=== PATIENT | female | born 1995 | race Caucasian/White ===

== ENCOUNTER 2018-10-05 05:15 | Inpatient (IN) | payer MEDICAID ==
[2018-10-05] MEDS ORDERED: BUTORPHANOL 2 MG INJ IV ×2 (06:00)
[2018-10-05] MEDS ORDERED: OXYTOCIN 30 UNITS/LR 500 ML IV ×2 (06:00→10:00)
[2018-10-05] MEDS ORDERED: LIDOCAINE 1% (MPF) 30 ML INJ INJ (06:00)
[2018-10-05] MEDS ORDERED: METHYLERGONOVINE 0.2 MG INJ IM ×2 (06:00→10:00)
[2018-10-05] MEDS ORDERED: CARBOPROST 250 MCG INJ IM ×2 (06:00→10:00)
[2018-10-05] MEDS: LACTATED RINGER'S 1,000 ML IV ×4 (06:29→13:57)
[2018-10-05 06:51] LABS: ADD MAN DIFF? NO
[2018-10-05 06:56] LABS: WHITE BLOOD COUNT 8.5 10^3/ul (4.8-10.8)
[2018-10-05 06:56] LABS: BASOPHIL # 0.1 10^3/ul (0.0-0.1); BASOPHILS % 0.6 % (0.0-2.0); EOSINOPHILS # 0.1 10^3/ul (0.0-0.5); EOSINOPHILS % 0.9 % (0.0-7.0); HEMATOCRIT 33.7 % (37.0-47.0); LYMPHOCYTES # 2.3 10^3/ul (0.8-2.9); LYMPHOCYTES % 26.6 % (15.0-51.0); MEAN CORPUSCULAR HEMOGLOBIN 26.8 pg (29.0-33.0); MEAN CORPUSCULAR HGB CONC 32.6 g/dl (32.0-37.0); MEAN CORPUSCULAR VOLUME 82.2 fl (82.0-101.0); MEAN PLATELET VOLUME 11.1 fl (7.4-10.4); MONOCYTE # 0.6 10^3/ul (0.3-0.9); MONOCYTES % 7.2 % (0.0-11.0); NEUTROPHIL # 5.4 10^3/ul (1.6-7.5); NEUTROPHILS % 63.3 % (39.0-77.0); PLATELET COUNT 165 10^3/UL (140-415); RED CELL DISTRIBUTION WIDTH 13.5 % (11.5-14.5)
[2018-10-05 07:15] LABS: INR 0.88; PT RATIO 0.9
[2018-10-05 07:16] LABS: PARTIAL THROMBOPLASTIN TIME 26.3 Sec (23.0-35.0)
[2018-10-05 07:54] LABS: HEPATITIS B SURFACE ANTIGEN NEGATIVE (NEGATIVE)
[2018-10-05] MEDS: MISOPROSTOL 200 MCG TAB PR (07:57)
[2018-10-05] MEDS: OXYTOCIN 30 UNITS/LR 500 ML IV ×3 (07:58→11:36)
[2018-10-05] MEDS: IBUPROFEN 600 MG TAB PO ×3 (08:09→19:29)
[2018-10-05] MEDS: LACTATED RINGER'S 1,000 ML IV* ×2 (09:35→17:35)
[2018-10-05] MEDS ORDERED: MAGNESIUM HYDROXIDE 30ML CUP PO (10:00)
[2018-10-05] MEDS ORDERED: ONDANSETRON 4 MG INJ IV (10:00)
[2018-10-05] MEDS ORDERED: LANOLIN HPA 1 PKT TOP (10:00)
[2018-10-05] MEDS ORDERED: MISOPROSTOL 200 MCG TAB PR (10:00)
[2018-10-05] MEDS: SENNA/DOCUSATE NA (8.6MG/50MG) TAB PO (10:57)
[2018-10-05] MEDS: BENZOCAINE 20% 56 ML SPRAY TOP (10:58)
[2018-10-05] MEDS: ACETAMINOPHEN 325 MG TAB PO ×2 (11:35→15:23)
[2018-10-05] MEDS: WITCH HAZEL/GLYCERIN PAD PR (11:36)
[2018-10-05] MEDS: DIBUCAINE 1% 30 GM OINT TOP (11:37)
[2018-10-05 15:42] LABS: RAPID PLASMA REAGIN NONREACTIVE (NR)
[2018-10-06] MEDS: IBUPROFEN 600 MG TAB PO ×2 (07:29→20:05)
[2018-10-06 08:35] LABS: ADD MAN DIFF? NO
[2018-10-06 08:48] LABS: WHITE BLOOD COUNT 6.9 10^3/ul (4.8-10.8)
[2018-10-06 08:48] LABS: BASOPHILS % 0.4 % (0.0-2.0); EOSINOPHILS # 0.1 10^3/ul (0.0-0.5); EOSINOPHILS % 0.9 % (0.0-7.0); HEMATOCRIT 30.1 % (37.0-47.0); HEMOGLOBIN 9.7 g/dl (12.0-16.0); LYMPHOCYTES # 1.8 10^3/ul (0.8-2.9); LYMPHOCYTES % 26.4 % (15.0-51.0); MEAN CORPUSCULAR HEMOGLOBIN 26.2 pg (29.0-33.0); MEAN CORPUSCULAR HGB CONC 32.2 g/dl (32.0-37.0); MEAN CORPUSCULAR VOLUME 81.4 fl (82.0-101.0); MEAN PLATELET VOLUME 11.3 fl (7.4-10.4); MONOCYTE # 0.5 10^3/ul (0.3-0.9); MONOCYTES % 6.5 % (0.0-11.0); NEUTROPHIL # 4.4 10^3/ul (1.6-7.5); NEUTROPHILS % 64.2 % (39.0-77.0); PLATELET COUNT 186 10^3/UL (140-415); RED CELL DISTRIBUTION WIDTH 13.6 % (11.5-14.5)
[2018-10-07] MEDS: IBUPROFEN 600 MG TAB PO (06:29)
== END 2018-10-07 12:15 | disposition home or self-care (01) | DRG 807 ==
LOC: OBT 05:15 → L-D 05:15 → OBT 05:55 → L-D 05:55 → PP1 09:59
PROVIDERS: Obstetrics & Gynecology
PROC: 10E0XZZ Delivery of Products of Conception, External Approach (ICD-10-PCS; principal; 2018-10-05)
DX: O48.0 Post-term pregnancy (principal); Z37.0 Single live birth; Z3A.40 40 weeks gestation of pregnancy; O69.81X0 Labor and delivery complicated by cord around neck, without compression, not applicable or unspecified
CPT/HCPCS: 85025; 85610; 85730; 86592; 86850; 86900; 86901; 87340; 99464